=== PATIENT | male | born 1955 | race Two or more races ===

== ENCOUNTER → 2020-10-24 | Outpatient (CLI) | payer MEDICARE, MEDICAID ==
--- NOTE | 2020-10-24 15:23 | RAD ---
EXAM: Scrotal sonogram. HISTORY: Scrotal mass. Surgery for hydrocele 4 months ago. TECHNIQUE: Taylor scale and color Doppler sonographic imaging of the scrotum with spectral waveform kanika lysis was performed. COMPARISON: None. FINDINGS: The testes are normal in size and demonstrate normal symmetric blood flow. No focal testicu lar parenchymal lesion is seen. There is a 1.4 cm inferior right epididymal cyst. There is a small ri ght hydrocele. There is a complex nonvascular collection along the medial and superior aspect of the left testis measuring 8.7 x 6.9 x 6.8 cm. IMPRESSION: 1. 8.7 x 6.9 x 6.8 cm complex collection within the left hemiscrotum medial and superior to the left testis. Given history of recent surgery, this is likely a large hematoma. This is separate from an un remarkable left testis. Continued close clinical evaluation to exclude mass effect on the left testis and confirm resolution is recommended. Cross-sectional imaging may also be considered if there is co ncern for a superimposed mass. 2. 1.4 cm right epididymal cyst and small right hydrocele. Electronically signed by: Sherlyn Delaney MD (10/24/2020 3:21 PM) [id number]
== END ==
LOC: US 14:31
PROVIDERS: ATTEND Family Medicine
DX: N50.3 Cyst of epididymis (principal); N43.2 Other hydrocele; N50.89 Other specified disorders of the male genital organs
CPT/HCPCS: 76870

== ENCOUNTER → 2021-05-11 | Outpatient (CLI) | payer MEDICARE, MEDICAID ==
--- NOTE | 2021-05-11 16:56 | RAD ---
US DPLX VENOUS EXTREMITY LOWER RT History: Reason: LEG EDEMA, RIGHT / Spl. Instructions: / History: Comparison: None. Technique: Multiple longitudinal and transverse high resolution real-time images of the venous system of right lower extremity were obtained with color and Doppler sampling. Findings: Degraded evaluation of the calf veins due to patient body habitus. No definite thrombus. Patent right common femoral, deep femoral, superficial, and popliteal veins. Impression: 1. No evidence of deep vein thrombosis. Electronically signed by: Paco Christensen DO (05/11/2021 4:54 PM) [facility]
== END ==
LOC: US 16:21
PROVIDERS: ATTEND Family Medicine
DX: R60.0 Localized edema (principal)
CPT/HCPCS: 93971